=== PATIENT | female | born 1980 | race Caucasian/White ===

== ENCOUNTER 2017-09-30 05:03 | Observation (INO) | payer MEDICAID ==
[~2017-09-30] VITALS: Ht 165.1 cm; Wt 68.0 kg
[2017-09-30] MEDS: LACTATED RINGERS 1,000 ML IV SCH ×4 (00:52→15:33)
[2017-09-30 00:58] LABS: BASOPHILS % 0.4 % (0.0-2.0); EOSINOPHILS % 0.7 % (0.0-5.0); HEMATOCRIT. 30.1 % (36.0-48.0); HEMOGLOBIN. 9.9 g/dL (12.0-16.0); LYMPHOCYTES % 15.1 % (20.0-50.0); MEAN CORPUSCULAR HEMOGLOBIN 26.3 pg (28.0-32.0); MEAN CORPUSCULAR VOLUME 80.1 fL (81.0-99.0); MEAN PLATELET VOLUME 7.6 fl (7.4-10.4); MONOCYTES % 8.5 % (2.0-8.0); NEUTROPHILS % 75.3 % (40.0-76.0); PLATELET 333 x1000/uL (130-400); RED BLOOD CELL COUNT 3.76 mill/uL (4.2-5.4); RED CELL DISTRIBUTION WIDTH 14.6 % (11.6-14.6)
[2017-09-30 00:58] LABS: CLARITY URINE CLEAR (CLEAR); COLOR URINE YELLOW (YELLOW); KETONES URINE NEGATIVE (NEGATIVE); LEUKOCYTE ESTERASE URINE TRACE (NEGATIVE); NITRITE URINE NEGATIVE (NEGATIVE); OCCULT BLOOD URINE NEGATIVE (NEGATIVE); PH URINE 6.5 (4.5-8.0); PROTEIN URINE NEGATIVE (NEGATIVE); SPECIFIC GRAVITY URINE 1.008 (1.005-1.030); UROBILINOGEN URINE 0.2 E.U./dL (0.2-1.0)
[~2017-09-30 05:03] MED LIST: CEFAZOLIN 2,000 MG in DEXT 5% WATER 100 ML IV NR; LACTATED RINGERS 1,000 ML IV NR; METOCLOPRAMIDE HCL 10MG/2ML VIAL IV NR; ONDANSETRON HCL 4MG/2ML VIAL IV NR; PNV1TABL50 PO
[2017-09-30] MEDS ORDERED: SODIUM CHLORIDE 0.9% 1,000 ML IV ONE (06:18)
[2017-09-30] MEDS ORDERED: ONDANSETRON HCL 4MG/2ML VIAL IV STA (06:18)
[2017-09-30] MEDS ORDERED: ACETAMINOPHEN 325MG TABLET PO ONE (06:30)
[2017-09-30 06:45] LABS: CHLORIDE 105 mEq/L (98-107)
[2017-09-30] MEDS ORDERED: ONDANSETRON 4MG ODT PO ONE (07:30)
[2017-09-30] MEDS ORDERED: FAMOTIDINE 20MG TABLET PO ONE (07:30)
[2017-09-30] MEDS ORDERED: ONDANSETRON HCL 4MG/2ML VIAL IV ONE (09:00)
[2017-09-30] MEDS: FAMOTIDINE 20MG/2ML VIAL IV SCH (12:10)
[2017-09-30 12:11] LABS: *AMPHETAMINES SCREEN URINE NEGATIVE (NEGATIVE); *BARBITURATES SCREEN URINE NEGATIVE (NEGATIVE); *BENZODIAZEPINES SCREEN URINE NEGATIVE (NEGATIVE); *COCAINE SCREEN URINE NEGATIVE (NEGATIVE); METHADONE URINE SCREEN NEGATIVE (NEGATIVE); OPIATES URINE SCREEN NEGATIVE (NEGATIVE); PHENCYCLIDINE URINE SCREEN NEGATIVE (NEGATIVE)
[2017-09-30 12:12] LABS: CANNABINOID URINE SCREEN NEGATIVE (NEGATIVE)
[2017-09-30 16:00] VITALS: BP 130/62
[2017-09-30 17:52] VITALS: BP 115/49
[2017-09-30 19:25] VITALS: BP 121/56
[2017-09-30] MEDS ORDERED: FAMOTIDINE 20MG/2ML VIAL IV SCH (21:00)
[2017-09-30] MEDS ORDERED: ONDANSETRON HCL 4MG/2ML VIAL IV PRN (21:45)
[2017-09-30] MEDS: ACETAMINOPHEN WITH CODEINE 300/30MG TABLET PO PRN (22:06)
[2017-10-01] VITALS (7 sets, daily range): BP systolic 91–118; BP diastolic 34–58
[2017-10-01] MEDS: FAMOTIDINE 20MG/2ML VIAL IV SCH ×3 (00:04→23:39)
[2017-10-01] MEDS: LACTATED RINGERS 1,000 ML IV SCH (00:04)
[2017-10-01] MEDS ORDERED: LACTATED RINGERS 1,000 ML IV SCH (00:15)
[2017-10-01] MEDS: ACETAMINOPHEN WITH CODEINE 300/30MG TABLET PO PRN ×4 (04:22→23:39)
[2017-10-02] VITALS: BP 118/58
[2017-10-02] MEDS: LACTATED RINGERS 1,000 ML IV SCH (01:10)
[2017-10-02 04:00] VITALS: BP 104/51
[2017-10-02] MEDS: ACETAMINOPHEN WITH CODEINE 300/30MG TABLET PO PRN (05:43)
[2017-10-02 07:33] VITALS: BP 122/65
== END 2017-10-02 09:45 | disposition home or self-care (01) ==
LOC: EDSTATUS 05:03 → ER 05:04 → L&D 09:59 → 7EST PP/OB 16:18
PROVIDERS: ADMIT Obstetrics & Gynecology; ATTEND Obstetrics & Gynecology
DX: O21.0 Mild hyperemesis gravidarum (principal); O23.42 Unspecified infection of urinary tract in pregnancy, second trimester; Z3A.22 22 weeks gestation of pregnancy; Z90.49 Acquired absence of other specified parts of digestive tract
CPT/HCPCS: 36415; 76700; 76805; 80053; 80305; 81003; 83690; 85025; 87086; 96361; 96365; 96366; 96375; 96376; 99285; G0378; J0690; J2405; J2765; J3490; J7030; J7120; J7060; Q0162

== ENCOUNTER 2022-05-11 13:15 | Inpatient (IN) | payer OTHER ==
[~2022-05-11] VITALS: Ht 162.6 cm; Wt 78.9 kg
[~2022-05-11 13:15] MED LIST changes: -CEFAZOLIN 2,000 MG in DEXT 5% WATER 100 ML IV NR; -LACTATED RINGERS 1,000 ML IV NR; -METOCLOPRAMIDE HCL 10MG/2ML VIAL IV NR; -ONDANSETRON HCL 4MG/2ML VIAL IV NR
[2022-05-11] MEDS ORDERED: LIDOCAINE HCL 1% 20ML VIAL (Pyxis) INJ INFIL SCH (16:45)
[2022-05-11] MEDS ORDERED: RHO(D) IMMUNE GLOBULIN 300 MCG/SYR IM ONE (16:45)
[2022-05-11] MEDS ORDERED: OXYTOCIN 30 UNITS/500ML NS PMX 500 ML IV SCH (16:45)
[2022-05-11] MEDS ORDERED: BUTORPHANOL TARTRATE 2 MG/ML VIAL IV PRN (16:45)
[2022-05-11] MEDS ORDERED: CARBOPROST TROMETHAMINE 250 MCG/ML AMPUL IM PRN (16:45)
[2022-05-11] MEDS ORDERED: METHYLERGONOVINE MALEATE 0.2 MG/ML IM PRN (16:45)
[2022-05-11] MEDS: LACTATED RINGERS 1,000 ML IV SCH ×2 (17:06→20:03)
[2022-05-11 17:24] LABS: CLARITY URINE CLEAR (CLEAR); COLOR URINE YELLOW (YELLOW); KETONES URINE 1+ (NEGATIVE); LEUKOCYTE ESTERASE URINE NEGATIVE (NEGATIVE); NITRITE URINE NEGATIVE (NEGATIVE); OCCULT BLOOD URINE NEGATIVE (NEGATIVE); PROTEIN URINE NEGATIVE (NEGATIVE); SPECIFIC GRAVITY URINE 1.013 (1.005-1.030); UROBILINOGEN URINE 0.2 E.U./dL (0.2-1.0)
[2022-05-11] MEDS ORDERED: PENICILLIN G POTASSIUM 5 MMU in DEXT 5% WATER 100 ML IV ONE (17:30)
[2022-05-11] MEDS ORDERED: LACTATED RINGERS 1,000 ML IV SCH (17:45)
[2022-05-11 17:48] LABS: BASOPHILS % 0.9 % (0.0-2.0); EOSINOPHILS % 0.9 % (0.0-5.0); LYMPHOCYTES % 18.3 % (20.0-50.0); MEAN CORPUSCULAR HEMOGLOBIN 28.4 pg (28.0-32.0); MEAN CORPUSCULAR VOLUME 85.1 fL (81.0-99.0); MEAN PLATELET VOLUME 7.6 fl (7.4-10.4); MONOCYTES % 5.2 % (2.0-8.0); NEUTROPHILS % 74.7 % (40.0-76.0); PLATELET 285 x1000/uL (130-400); RED BLOOD CELL COUNT 4.58 mill/uL (4.2-5.4); RED CELL DISTRIBUTION WIDTH 14.2 % (11.6-14.6)
[2022-05-11 17:49] LABS: *AMPHETAMINES SCREEN URINE NEGATIVE (NEGATIVE); *BARBITURATES SCREEN URINE NEGATIVE (NEGATIVE); *BENZODIAZEPINES SCREEN URINE NEGATIVE (NEGATIVE); *COCAINE SCREEN URINE NEGATIVE (NEGATIVE); CANNABINOID URINE SCREEN NEGATIVE (NEGATIVE); METHADONE URINE SCREEN NEGATIVE (NEGATIVE); OPIATES URINE SCREEN NEGATIVE (NEGATIVE); PHENCYCLIDINE URINE SCREEN NEGATIVE (NEGATIVE)
[2022-05-11 17:57] LABS: INR 0.9; PARTIAL THROMBOPLASTIN TIME 24.1 sec (23.4-31.0); PROTHROMBIN TIME 9.7 sec (9.6-11.0)
[2022-05-11 18:36] LABS: HEPATITIS B SURFACE ANTIGEN NEGATIVE
[2022-05-11] MEDS ORDERED: ROPIVACAINE HCL/PF EPIDURAL 200 ML EPI ONE (19:45)
[2022-05-11] MEDS ORDERED: PENICILLIN G POTASSIUM 2.5 MMU in DEXTROSE 5% WATER 50 ML IV SCH (21:30)
[2022-05-11] MEDS ORDERED: ROPIVACAINE HCL/PF EPIDURAL 200 ML EPI SCH (22:30)
[2022-05-12] VITALS: BP 108/62
[2022-05-12] MEDS ORDERED: OXYTOCIN 30 UNITS/500ML NS PMX 500 ML IV SCH
[2022-05-12] MEDS ORDERED: ACETAMINOPHEN WITH CODEINE 300/30MG TABLET PO PRN
[2022-05-12] MEDS ORDERED: DIPHENHYDRAMINE 25MG CAPSULE PO PRN
[2022-05-12] MEDS ORDERED: ACETAMINOPHEN 500MG TABLET PO PRN
[2022-05-12] MEDS ORDERED: BISACODYL 10MG SUPP PR PRN
[2022-05-12] MEDS ORDERED: HEMORRHOIDAL SUPP PR PRN
[2022-05-12] MEDS ORDERED: RHO(D) IMMUNE GLOBULIN 300 MCG/SYR IM PRN
[2022-05-12] MEDS ORDERED: METHYLERGONOVINE MALEATE 0.2 MG/ML IM PRN
[2022-05-12] MEDS ORDERED: LANOLIN OINT 7GM TUBE TOP PRN
[2022-05-12] MEDS: MAGNESIUM/ALUMINUM HYDROXIDE/SIMETHICONE 30ML UDC PO SCH ×5 (00:05→20:30)
[2022-05-12] MEDS: SIMETHICONE 80MG TABLET CHEW PO SCH ×5 (00:10→20:30)
[2022-05-12] MEDS: BENZOCAINE/LANOLIN/ALOE VERA SPRAY TOP PRN (01:56)
[2022-05-12] MEDS: GLYCERIN/WITCH HAZEL LEAF MEDICATED PAD TOP PRN (01:56)
[2022-05-12] MEDS: IBUPROFEN 800MG TABLET PO PRN ×3 (03:37→19:04)
[2022-05-12 04:02] VITALS: BP 109/68
[2022-05-12 06:59] LABS: BASOPHILS % 0.4 % (0.0-2.0); EOSINOPHILS % 0.2 % (0.0-5.0); HEMATOCRIT. 31.7 % (36.0-48.0); HEMOGLOBIN. 10.8 g/dL (12.0-16.0); LYMPHOCYTES % 13.8 % (20.0-50.0); MEAN CORPUSCULAR HEMOGLOBIN 28.9 pg (28.0-32.0); MEAN CORPUSCULAR VOLUME 84.8 fL (81.0-99.0); MEAN PLATELET VOLUME 7.6 fl (7.4-10.4); MONOCYTES % 7.4 % (2.0-8.0); NEUTROPHILS % 78.2 % (40.0-76.0); PLATELET 249 x1000/uL (130-400); RED BLOOD CELL COUNT 3.74 mill/uL (4.2-5.4); RED CELL DISTRIBUTION WIDTH 13.7 % (11.6-14.6)
[2022-05-12 08:00] VITALS: BP 116/67
[2022-05-12] MEDS: FERROUS SULFATE 325MG TABLET PO SCH ×3 (08:11→17:30)
[2022-05-12] MEDS ORDERED: PRENATAL VIT/FE FUMARATE/FA TABLET PO SCH (09:00)
[2022-05-12 16:00] VITALS: BP 124/72
[2022-05-12 20:00] VITALS: BP 95/46
[2022-05-12] MEDS ORDERED: DOCUSATE SODIUM 100MG CAPSULE PO SCH (21:00)
[2022-05-13 04:00] VITALS: BP 94/40
[2022-05-13] MEDS: FERROUS SULFATE 325MG TABLET PO SCH (07:30)
[2022-05-13] MEDS: MAGNESIUM/ALUMINUM HYDROXIDE/SIMETHICONE 30ML UDC PO SCH (07:30)
[2022-05-13 08:00] VITALS: BP 100/51
[2022-05-13] MEDS: SIMETHICONE 80MG TABLET CHEW PO SCH (08:00)
[2022-05-13] MEDS ORDERED: CEFAZOLIN SODIUM 1000MG/VIAL ONE (10:16)
[2022-05-13] MEDS ORDERED: MIDAZOLAM HCL 2 MG/2 ML VIAL ONE (10:47)
[2022-05-13] MEDS ORDERED: ONDANSETRON HCL 4MG/2ML INJ ONE (10:48)
[2022-05-13] MEDS ORDERED: DEXAMETHASONE 4MG/ML 1ML VIAL ONE (10:48)
[2022-05-13] MEDS ORDERED: FENTANYL CITRATE/PF 50MCG/ML 2ML VIAL IV PRN (11:00)
[2022-05-13] MEDS ORDERED: ONDANSETRON HCL 4MG/2ML INJ IV PRN (11:00)
[2022-05-13] MEDS ORDERED: IBUP-2030 PO (11:31)
[2022-05-13] MEDS: IBUPROFEN 800MG TABLET PO PRN (13:03)
[2022-05-13 16:00] VITALS: BP 97/54
[2022-05-13] MEDS: GLYCERIN/WITCH HAZEL LEAF MEDICATED PAD TOP PRN (18:58)
[2022-05-13] MEDS: BENZOCAINE/LANOLIN/ALOE VERA SPRAY TOP PRN (18:58)
== END 2022-05-13 19:10 | disposition home or self-care (01) | DRG 541 ==
LOC: OBSVTOIN 13:15 → 8 EST LDRP 13:15 → 8EST 23:59
PROVIDERS: ADMIT Obstetrics & Gynecology; ATTEND Obstetrics & Gynecology
PROC: 10D07Z6 Extraction of Products of Conception, Vacuum, Via Natural or Artificial Opening (ICD-10-PCS; 2022-05-11)
PROC: 0UB70ZZ Excision of Bilateral Fallopian Tubes, Open Approach (ICD-10-PCS; principal; 2022-05-13)
DX: O90.81 Anemia of the puerperium (principal); Z37.0 Single live birth; Z20.822 Contact with and (suspected) exposure to COVID-19; Z3A.39 39 weeks gestation of pregnancy; Z30.2 Encounter for sterilization
CPT/HCPCS: 36415; 76805; 76818; 80305; 81003; 85025; 86592; 86703; 86762; 86850; 86900; 87340; 87426; 88302; 99281; J0595; J0690; J1100; J2250; J2405; J2540; J2795; J7060; J7120; A4315; J2590